=== PATIENT | female | born 1960 | race Hispanic/Latino ===

== ENCOUNTER 2022-10-14 19:08 | Emergency (ER) | payer BC ==
[2022-10-14] MEDS ORDERED: HYDROcodone/Acetaminophen 10/325 mg Tablet ONE (19:45)
[2022-10-14] MEDS ORDERED: Morphine 4 MG/ML VIAL ONE (21:03)
== END 2022-10-14 21:25 | disposition home or self-care (01) ==
LOC: ERS 19:08
DX: S82.855A Nondisplaced trimalleolar fracture of left lower leg, initial encounter for closed fracture (principal); X50.1XXA Overexertion from prolonged static or awkward postures, initial encounter
CPT/HCPCS: 29515; 96372; J2270

== ENCOUNTER 2022-10-25 06:01 | Day surgery (SDC) | payer BC ==
[2022-10-24 14:08] VITALS: BMI 36.8
[2022-10-25] MEDS ORDERED: fentaNYL PF 100 MCG/2 ML SYRINGE ONE ×2 (06:44→08:26)
[2022-10-25] MEDS ORDERED: Midazolam HCl 2 mg/2 ml Vial ONE (07:07)
[2022-10-25] MEDS ORDERED: Ropivacaine 0.5% HCl/PF (150 MG/30 ML VIAL) ONE (07:08)
[2022-10-25] MEDS ORDERED: Lidocaine 1% (PF) 30 ML VIAL ONE (07:08)
[2022-10-25] MEDS ORDERED: CEFAZOLIN 2 GM VIAL ONE (07:25)
[2022-10-25] MEDS ORDERED: Sodium Chloride 0.9% 100 ML ONE (07:25)
[2022-10-25] MEDS ORDERED: Phenylephrine 10 MG/ML VIAL ONE (07:28)
[2022-10-25] MEDS ORDERED: Dexamethasone 20 MG/5 ML VIAL ONE (07:28)
[2022-10-25] MEDS ORDERED: Ondansetron PF 4 MG/2 ML Vial ONE (07:28)
[2022-10-25] MEDS ORDERED: Ketorolac Tromethamine 30 MG/ML VIAL ONE (07:28)
[2022-10-25] MEDS ORDERED: PROPOFOL 200 MG/20 ML VIAL ONE (07:28)
[2022-10-25] MEDS ORDERED: Fentanyl 100 MCG/2 ML VIAL IV PRN (07:43)
[2022-10-25] MEDS ORDERED: Ondansetron PF 4 MG/2 ML Vial IVP PRN (07:45)
[2022-10-25] MEDS ORDERED: Ropivacaine 0.2% 550 ML 550 ML NERVE BLCK SCH (07:45)
[2022-10-25] MEDS ORDERED: Zolpidem Tartrate 5 MG TAB PO PRN (07:45)
[2022-10-25] MEDS ORDERED: Promethazine HCl 25 MG/ML VIAL IM PRN (07:45)
[2022-10-25] MEDS ORDERED: FENTANYL 50 MCG/ML 1 ML VIAL ONE ×2 (09:20→09:36)
[2022-10-25] MEDS ORDERED: HYDROmorphone 0.5 MG/0.5 ML SYRINGE ONE ×2 (09:50→10:31)
== END 2022-10-25 13:17 | disposition home or self-care (01) ==
LOC: SDC 06:01
PROVIDERS: ATTEND Orthopaedic Surgery
PROC: 0QSH04Z Reposition Left Tibia with Internal Fixation Device, Open Approach (ICD-10-PCS; principal; 2022-10-25)
PROC: 0QSK04Z Reposition Left Fibula with Internal Fixation Device, Open Approach (ICD-10-PCS; principal; 2022-10-25)
DX: S82.852A Displaced trimalleolar fracture of left lower leg, initial encounter for closed fracture (principal); W18.30XA Fall on same level, unspecified, initial encounter
CPT/HCPCS: A4306; C1713; J1100; J1170; J1885; J2001; J2250; J2370; J2405; J2704; J2795; J3010; J3490